=== PATIENT | male | born 1960 | race African-American/Black ===

== ENCOUNTER 2024-05-22 07:57 | Emergency (ER) | payer OTHER, MEDICAID ==
[~2024-05-22] VITALS: Ht 182.9 cm; Wt 102.0 kg
[2024-05-22 08:03] VITALS: O2SAT 99
[2024-05-22 08:37] LABS: BG DEOXYHEMOGLOBIN 65.9 % (0.0-5.0)
[2024-05-22 09:00] LABS: CHLORIDE 99 mEq/L (98-107); POTASSIUM 3.8 mEq/L (3.5-5.1); SODIUM 135 mEq/L (136-145)
[2024-05-22 09:01] LABS: BASOPHILS % 0.3 % (0.0-2.0); CARBON DIOXIDE 25 mEq/L (21-32); EOSINOPHILS % 0.3 % (0.0-5.0); HEMOGLOBIN. 8.5 g/dL (14.0-18.0); LYMPHOCYTES % 7.1 % (20.0-50.0); MEAN CORPUSCULAR HEMOGLOBIN 30.4 pg (28.0-32.0); MEAN CORPUSCULAR HGB CONC 31.6 g/dL (31.0-37.0); MEAN CORPUSCULAR VOLUME 96.1 fL (80.0-94.0); MEAN PLATELET VOLUME 10.5 fl (7.4-10.4); MONOCYTES % 6.1 % (2.0-8.0); NEUTROPHILS % 86.2 % (40.0-76.0); PLATELET 162 x1000/uL (130-400); RED BLOOD CELL COUNT 2.81 mill/uL (4.7-6.1); RED CELL DISTRIBUTION WIDTH 20.2 % (11.6-14.6); WHITE BLOOD COUNT 5.1 x1000/uL (4.5-11.0)
[2024-05-22 09:02] LABS: CALCIUM 8.9 mg/dL (8.7-10.4)
[2024-05-22 09:06] LABS: CREATININE 4.4 mg/dL (0.6-1.3); INR 1.3; PROTHROMBIN TIME 13.6 sec (9.6-11.0)
[2024-05-22 09:07] LABS: GLUCOSE 143 mg/dL (70-105); UREA NITROGEN BLOOD 44 mg/dL (9-23)
[2024-05-22 09:09] LABS: TROPONIN I HIGH SENSITIVITY 24 ng/L (3.0-53)
[2024-05-22] MEDS: ASPIRIN 325MG EC TABLET PO ONE (10:03)
[2024-05-22 10:39] LABS: TROPONIN I HIGH SENSITIVITY 23 ng/L (3.0-53)
[2024-05-22] MEDS: ACETAMINOPHEN 1000MG/100ML 100 ML IV ONE (12:33)
[2024-05-22 13:00] VITALS: BP 99/59; PULSE 78; RESP 16; TEMP 36.6; O2SAT 100
== END 2024-05-22 12:50 | disposition short-term general hospital (02) ==
LOC: ER 08:06
DX: R07.89 Other chest pain (principal); R06.02 Shortness of breath; I13.2 Hypertensive heart and chronic kidney disease with heart failure and with stage 5 chronic kidney disease, or end stage renal disease; E11.22 Type 2 diabetes mellitus with diabetic chronic kidney disease; N18.6 End stage renal disease; I50.9 Heart failure, unspecified; E78.00 Pure hypercholesterolemia, unspecified; I48.91 Unspecified atrial fibrillation; Z86.73 Personal history of transient ischemic attack (TIA), and cerebral infarction without residual deficits; Z95.0 Presence of cardiac pacemaker; Z99.2 Dependence on renal dialysis; Z88.6 Allergy status to analgesic agent; Z88.5 Allergy status to narcotic agent
CPT/HCPCS: 36415; 71045; 80048; 82375; 82803; 83880; 84484; 85025; 93971; 96365; 99285; A4606; J0131